=== PATIENT | female | born 1990 | race Caucasian/White ===

== ENCOUNTER 2025-03-20 23:50 | Emergency (ER) | payer SELFPAY ==
--- NOTE | ~2025-03-20 | XR_ITS ---
Examination: XR chest 1V Clinical History: needed for placement at [facility] Comparison: None Technique: Portable AP Findings: Heart size normal. Lungs clear. No acute bony abnormality. IMPRESSION: 1. No acute cardiopulmonary findings given portable technique. Reviewed, dictated and finalized at location R.
--- NOTE | 2025-03-21 | ED.PSYCH ---
HPI - Psych General Chief Complaint: Psychiatric Symptoms Stated Complaint: Suicidal Time Seen by Provider: 03/20/25 23:54 History of Present Illness HPI Narrative: 35-year-old female with history of psychiatric illness and prior suicide attempt with hanging. Patient presents the emergency department tearful and states she wants to kill herself. When asked if she has any particular plan patient states that she has no definitive idea but thinks feel just hang herself again. Patient denies any physical complaints. States she felt more suicidal today but has been having suicidal ideation for quite some time . Today she got thrown out of her friend's house and has nowhere to stay and became acutely tearful and had worsening thoughts of suicide. No current medical complaints otherwise. Related Data Home Medications ?Medication ?Instructions ?Recorded ?Confirmed ?Last Taken ?Type folic acid 1 mg tablet 1 mg PO DAILY 03/21/25 03/21/25 03/20/25 History hydroxyzine HCl 25 mg tablet mg 03/21/25 Unknown History melatonin 3 mg capsule 3 mg PO DAILY PRN sleep 03/21/25 03/21/25 Unknown History prazosin 1 mg capsule 1 mg PO DAILY 03/21/25 03/21/25 03/20/25 History quetiapine 50 mg tablet 50 mg PO HS 03/21/25 03/21/25 03/20/25 History sertraline 50 mg tablet mg 03/21/25 03/20/25 History thiamine HCl (vitamin B1) 100 mg 100 mg PO DAILY 03/21/25 03/21/25 03/20/25 History tablet (Vitamin B-1) trazodone 50 mg tablet mg 03/21/25 Unknown History Review of Systems Review of Systems: As reviewed above in HPI All systems reviewed & are unremarkable except as noted in HPI and below PMFSH Social History Social History Substance use type: former substance user Exam Narrative: GENERAL: [Well-appearing, well-nourished, and in no acute distress.] HEAD: [Normocephalic, atraumatic.] EYES: [PERRLA and EOMI.] ENT: Nares clear, no rhinorrhea or epistaxis. Mucous membranes moist. NECK: Supple. CHEST: [Clear to auscultation. No respiratory distress.] HEART: [Regular rate and rhythm]. No murmur heard. [Normal peripheral pulses.] ABDOMEN: [Soft, nondistended], [nontender], [No rigidity or guarding] EXTREMITIES: Normal range of motion. [No edema.] SKIN: Warm, dry, no rash. NEURO: [No focal deficits]. Alert and oriented [x3.] PSYCH: tearful mood and affect, suicidal ideation Course Vital Signs Vital signs: Vital Signs Temperature 36.4 C L 03/21/25 00:03 Pulse Rate 71 03/21/25 00:03 Respiratory Rate 15 03/21/25 00:03 Blood Pressure 123/78 03/21/25 00:03 Pulse Oximetry 100 03/21/25 00:03 Oxygen Delivery Room Air 03/21/25 00:03 Temperature 36.4 C L 03/21/25 00:03 Pulse Rate 71 03/21/25 00:03 Respiratory Rate 15 03/21/25 00:03 Blood Pressure 123/78 03/21/25 00:03 Pulse Oximetry 100 03/21/25 00:03 Oxygen Delivery Room Air 03/21/25 00:03 MDM - Psych MDM Narrative Medical decision making narrative: 35-year-old female with history of psychiatric illness and prior suicide attempt with hanging. Patient presents the emergency department tearful and states she wants to kill herself. When asked if she has any particular plan patient states that she has no definitive idea but thinks feel just hang herself again. Patient denies any physical complaints. States she felt more suicidal today but has been having suicidal ideation for quite some time . Today she got thrown out of her friend's house and has nowhere to stay and became acutely tearful and had worsening thoughts of suicide. No current medical complaints otherwise. patient is otherwise well-appearing but very tearful in her mood and affect and high risk for suicide given her historical elements and previous attempts. Sitter placed at bedside, changes in green scrubs. Clearance laboratory studies ordered as well as COVID swab. Patient agreed to be evaluated for psychiatric intake but needs medical screening first. Laboratory studies unremarkable patient medically cleared for psychiatric evaluation and transportation. Patient has been evaluated by the crisis team who recommends voluntary placement. Patient accepted at [facility] under Dr. Castellanos. Patient care endorsed to morning physician pending completion of transfer. Transfer form filled out. Medical Records Attestation: I reviewed the patient's medical records. Lab Data Attestation: I reviewed the patient's lab results. 03/21/25 00:22 03/21/25 00:22 Labs: Lab Results 03/21/25 03/21/25 Range/Units 00:22 00:26 WBC 11.0 H (4.5-10.0) K/mm3 RBC 4.62 (4.2-5.4) M/mm3 Hgb 12.7 (12.0-15.0) g/dL Hct 39.9 (37.0-47.0) % MCV 86.4 (80-100) fl MCH 27.5 (26-34) pg MCHC 31.8 L (32-36) g/dl RDW 14.6 H (11.5-14.5) % Plt Count 231 (150-375) k/mm3 MPV 9.9 (7.4-10.4) fl Immature Gran % (Auto) 0.5 (0-0.5) % Neut % (Auto) 78.2 H (45.5-73.1) % Lymph % (Auto) 12.8 L (18.3-44.2) % [place] % (Auto) 6.3 (2.6-8.5) % Eos % (Auto) 1.4 (0-4.4) % Baso % (Auto) 0.8 (0.2-1.2) % Lymph # (Auto) 1.41 (0.9-3.2) K/mm3 [place] # (Auto) 0.7 H (0.1-0.6) K/mm3 Eos # (Auto) 0.2 (0-0.3) K/mm3 Baso # (Auto) 0.1 (0.0-0.1) K/mm3 Abs Immat Gran (auto) 0.05 H (0.00-0.031) K/mm3 Absolute Neuts (auto) 8.6 H (1.3-6.7) K/mm3 Absolute Nucleated RBC 0.000 (0.0-0.012) K/mm3 Nucleated RBC % 0.0 (0.0-0.2) % Sodium 138 (137-145) mmol/L Potassium 4.2 (3.4-5.0) mmol/L Chloride 103 (98-107) mmol/L Carbon Dioxide 28 (22-30) mmol/L Anion Gap 7 (4-12) mmol/L BUN 21 H (7-17) mg/dL Creatinine 0.60 L (0.7-1.0) mg/dL Estim Creat Clear Calc Not Reportable Estimated GFR > 60 (59 - ) Glucose 95 (65-110) mg/dL Calcium 9.0 (8.4-10.2) mg/dL Total Bilirubin 0.3 (0.2-1.3) mg/dL AST 28 (14-36) U/L ALT 25 (6-35) U/L Alkaline Phosphatase 88 (38-126) U/L Total Protein 8.6 H (6.3-8.2) g/dL Albumin 4.7 (3.5-5.1) g/dL TSH (Reflex) 1.990 (0.465-4.68) uIU/mL Urine Color Yellow (Yellow) Urine Appearance Clear (Clear) Urine pH 5.5 (5.0-9.0) Ur Specific [place] 1.029 (1.001-1.035) Urine Protein Negative (Negative) mg/dL Urine Glucose (UA) Negative (Negative) mg/dL Urine Ketones Negative (Negative) mg/dL Ur Blood (Man) Negative (Negative) Urine Nitrate Negative (Negative) Urine Bilirubin Negative (Negative) Urine Urobilinogen 0.2 (<2.0) mg/dL Leukocyte Esterase Rfl Negative (Negative) TIEN/UL POC Urine HCG, Qual Negative (Negative) Urine Opiates Screen Negative (Negative) Urine Methadone Screen Negative (Negative) Ur Barbiturates Screen Negative (Negative) Ur Phencyclidine Scrn Negative (Negative) Ur Amphetamine Screen Negative (Negative) U Benzodiazepines Scrn Negative (Negative) Urine Cocaine Screen Negative (Negative) U Cannabinoids Screen Positive A (Negative) Ethyl Alcohol < 10 (<10) mg/dL SARS-CoV-2 RNA (RT-PCR) Negative (Negative) Discharge Plan Discharge Clinical Impression: Suicidal ideation Patient Disposition: Psychiatric Hosp Condition: Stable Patient Language: Kyrgyz Prescriptions: No Action hydroxyzine HCl 25 mg tablet sertraline 50 mg tablet prazosin 1 mg capsule 1 mg PO DAILY quetiapine 50 mg tablet 50 mg PO HS trazodone 50 mg tablet folic acid 1 mg tablet 1 mg PO DAILY melatonin 3 mg capsule 3 mg PO DAILY PRN (Reason: sleep) thiamine HCl (vitamin B1) [Vitamin B-1] 100 mg tablet 100 mg PO DAILY Follow-up/Referrals: PHYSICIAN,ELDERLY CAREGIVER [Primary Care Provider, Internal Medicine] Time of Disposition: 06:47
[2025-03-21 00:03] VITALS: BP 123/78; PULSE 71; RESP 15; TEMP 36.4; O2SAT 100
[2025-03-21 00:28] LABS: BEDSIDEPREGUCG Negative (Negative)
[2025-03-21 00:31] LABS: Hematocrit 39.9 % (37.0-47.0); Hemoglobin 12.7 g/dL (12.0-15.0); Immature Granulocyte Percent A 0.5 % (0-0.5); Lymphocytes Absolute Auto 1.41 K/mm3 (0.9-3.2); Mean Corpuscular HGB Conc 31.8 g/dl (32-36); Mean Corpuscular Hemoglobin 27.5 pg (26-34); Mean Corpuscular Volume 86.4 fl (80-100); Nucleated Red Blood Cells Absolute Auto 0.000 K/mm3 (0.0-0.012); Nucleated Red Blood Cells Perc 0.0 % (0.0-0.2); Platelet Count Result 231 k/mm3 (150-375); Red Blood Count 4.62 M/mm3 (4.2-5.4); White Blood Count 11.0 K/mm3 (4.5-10.0)
[2025-03-21 00:33] LABS: Add Urine Microscopic? NO; Appearance Urine Clear (Clear); Glucose Urine UA Negative (Negative); Leukocyte Esterase Ur Negative LEU/UL (Negative); Nitrate Urine Negative (Negative); Specific Grav Ur 1.029 (1.001-1.035)
[2025-03-21 00:42] LABS: Alanine Aminotransferase 25 U/L (6-35); Albumin Level 4.7 g/dL (3.5-5.1); Alkaline Phosphatase 88 U/L (38-126); Anion Gap 7 mmol/L (4-12); Aspartate Amino Transferase 28 U/L (14-36); Bilirubin,Total 0.3 mg/dL (0.2-1.3); Blood Urea Nitrogen 21 mg/dL (7-17); Calcium 9.0 mg/dL (8.4-10.2); Carbon Dioxide 28 mmol/L (22-30); Chloride 103 mmol/L (98-107); Estimated Glomerular Filt Rate > 60; Glucose 95 mg/dL (65-110); Potassium 4.2 mmol/L (3.4-5.0); Sodium 138 mmol/L (137-145); Total Protein 8.6 g/dL (6.3-8.2)
[2025-03-21 00:50] LABS: Cannabinoid Screen Urine Positive (Negative)
[2025-03-21 01:08] LABS: SARS-CoV-2 RNA PCR Negative (Negative)
[2025-03-21 01:16] LABS: Thyroid Stimulating Hormone Reflex 1.990 uIU/mL (0.465-4.68)
--- NOTE | 2025-03-21 06:31 | PC.NURSE ---
pt accepted to [facility] by . pt needs a chest XR to be fully accepted.
--- NOTE | 2025-03-21 06:32 | PC.NURSE ---
This RN tried to call [facility] for a callback. No answer
--- NOTE | 2025-03-21 07:01 | PC.NURSE ---
This RN ordered pt a breakfast tray
[2025-03-21 07:23] VITALS: BP 114/73; PULSE 76; RESP 15; TEMP 36.4; O2SAT 100
--- NOTE | 2025-03-21 07:36 | PC.NURSE ---
Pt chest x-ray results faxed to [facility]
[2025-03-21 10:20] VITALS: BP 124/88; PULSE 84; RESP 16; O2SAT 98
== END 2025-03-21 10:30 ==
PROVIDERS: Emergency Provider Student in an Organized Health Care Education/Training Program
DX: R45.851 Suicidal ideations (principal); Z11.52 Encounter for screening for COVID-19; F99 Mental disorder, not otherwise specified; Z79.899 Other long term (current) drug therapy
CPT/HCPCS: 36415; 71045; 80053; 80307; 81003; 81025; 82077; 84443; 85025; 87635; 99285